=== PATIENT | male | born 1985 | race Caucasian/White ===

== ENCOUNTER 2023-06-12 09:12 | Outpatient (CLI) | payer SELFPAY | END 2023-06-12 09:13 | disposition home or self-care (01) | LOC: NFLDREF 06-14 11:30 | PROVIDERS: PCP Family Medicine; Referring Provider Family Medicine; Visit Provider Internal Medicine | DX: Z00.00 Encounter for general adult medical examination without abnormal findings (principal); N52.9 Male erectile dysfunction, unspecified; Z13.6 Encounter for screening for cardiovascular disorders; Z12.5 Encounter for screening for malignant neoplasm of prostate | CPT/HCPCS: 80053; 80061; 84153; 84403 ==

== ENCOUNTER 2025-04-30 15:16 | Outpatient (CLI) | payer OTHER, SELFPAY | END 2025-04-30 15:17 | disposition home or self-care (01) | PROVIDERS: PCP Internal Medicine; Visit Provider Internal Medicine | DX: R25.2 Cramp and spasm (principal); N52.9 Male erectile dysfunction, unspecified; R00.2 Palpitations | CPT/HCPCS: 82550; 84146; 85379 ==